=== PATIENT | female | born 1925 | race Caucasian/White ===

== ENCOUNTER 2016-07-03 07:04 | Emergency (ER) | payer MEDICARE ==
[~2016-07-03] VITALS: Ht 160 cm; Wt 43.3 kg
[~2016-07-03 07:04] MED LIST: ALPR.25 PO; AMLO5TAB22 PO; CARD2TAB PO; ESTR0.5T PO; LATA.005%O OU; LISI-363 PO; SOTA80TA PO; TAB-TAB PO
[2016-07-03 07:13] VITALS: BP 152/69; PULSE 75; RESP 16; TEMP 97.6; O2SAT 98
[2016-07-03] MEDS ORDERED: ACETAMINOPHEN 325 MG TAB PO ONE (07:30)
--- NOTE | 2016-07-03 07:33 | PD ---
HPI Chief Complaint: Musculoskeletal Complaint Time Seen by Provider: 07:22 Travel History International Travel<30 days: No Contact w/Intl Traveler<30days: No Traveled to known affect area: No History of Present Illness HPI Patient is an 89-year-old female comes in complaining of right flank pain that started Tuesday. She says she had the pain Tuesday it seemed to go away for a little while until last night when the pain came back. She says the pain is worse with taking a deep breath. She denies any injury. She denies any nausea or vomiting. She denies any urinary symptoms. She denies any fever but says she has been feeling very cold. PFSH Past Medical History Arthritis: Yes Atrial Fibrillation: Yes Cancer: No Cardiovascular Problems: Yes (ATRIAL FIBRILLATION ) Diabetes: No Endocrine: No Genitourinary: No Hepatitis: Yes (HEPATITIS A) Hiatal Hernia: No Hypertension: Yes Immune Disorder: No Musculoskeletal: No Neurologic: No Psychiatric: Yes (SLIGHTLY CLAUSTROPHOBIC) Reproductive: No Respiratory: Yes Thyroid Disease: No Menopausal: Yes Past Surgical History AICD: No Eye Surgery: Yes (BILATERAL CATARACT SURGERY) Gynecologic Surgery: Yes (HYSTERECTOMY) Hysterectomy: Yes Joint Replacement: No Pacemaker: No Thoracic Surgery: Yes (L BREAST LUMPECTOMY FOR BENIGN MASS) Family History Family Hypercholesterolemia: Yes Social History Alcohol Use: Yes (1-2 GLASSES OF WINE PER NIGHT) Tobacco Use: No Substance Use: No Allergies-Medications (Allergen,Severity, Reaction): Coded Allergies: No Known Allergies (Unverified , 07/03/16) Reported Meds & Prescriptions Reported Meds & Active Scripts Active Keflex (Cephalexin) 500 Mg Cap 500 Mg PO Q6H 7 Days Reported Warfarin 5 Mg Tab 5 Mg PO DAILY Lasix (Furosemide) 20 Mg Tab 20 Mg PO DAILY Sotalol (Sotalol HCl) 80 Mg Tab 40 Mg PO BID Lisinopril 20 Mg Tab 20 Mg PO HS Xalatan Opth Drops (Latanoprost) 0.005% Drops 1 Drop EACH EYE HS Estrace (Estradiol) 0.5 Mg Tab 0.5 Mg PO DAILY Amlodipine (Amlodipine Besylate) 5 Mg Tab 5 Mg PO DAILY Xanax (Alprazolam) 0.25 Mg Tab 0.25 Mg PO HS PRN Review of Systems Except as stated in HPI: all other systems reviewed are Neg General / Constitutional: Positive: Chills, No: Fever HENT: No: Headaches Cardiovascular: No: Chest Pain or Discomfort Respiratory: No: Cough Gastrointestinal: No: Nausea, Vomiting Genitourinary: Positive: Flank Pain, No: Dysuria Musculoskeletal: Positive: Pain Skin: No Rash, No Change in Pigmentation Neurologic: No: Weakness, Dizziness Physical Exam Narrative GENERAL: Awake and alert, in no acute distress. SKIN: Focused skin assessment warm/dry. HEAD: Atraumatic. Normocephalic. EYES: Pupils equal and round. No scleral icterus. ENT: Mucous membranes pink and moist. NECK: Trachea midline. No JVD. CARDIOVASCULAR: Regular rate and rhythm. No murmur appreciated. RESPIRATORY: No accessory muscle use. Clear to auscultation. Breath sounds equal bilaterally. Pain with deep breathing. GASTROINTESTINAL: Abdomen soft, non-tender, nondistended. No CVA tenderness. MUSCULOSKELETAL: No obvious deformities. No clubbing. No cyanosis. No edema. Pedal pulses equal and intact. NEUROLOGICAL: Awake and alert. No obvious cranial nerve deficits. Motor grossly within normal limits. Normal speech. PSYCHIATRIC: Appropriate mood and affect; insight and judgment normal. Data Data Last Documented VS Vital Signs Date Time Temp Pulse Resp B/P Pulse Ox O2 Delivery O2 Flow Rate FiO2 07/03/16 09:28 72 17 142/78 96 07/03/16 07:13 97.6 Orders Complete Blood Count With Diff (07/03/16 07:29) Comprehensive Metabolic Panel (07/03/16 07:29) Chest, Pa & Lat (07/03/16 ) Act Partial Throm Time (Ptt) (07/03/16 07:29) Prothrombin Time / Inr (Pt) (07/03/16 07:29) Ct Abd/Pel W/O Iv Contrast (07/03/16 ) Acetaminophen (Tylenol) (07/03/16 07:30) Urinalysis - C+S If Indicated (07/03/16 07:34) Urine Culture (07/03/16 07:48) Labs Laboratory Tests Test 07/03/16 07/03/16 07:48 08:00 Urine Collection Type CLEAN CATCH Urine Color YELLOW Urine Turbidity CLEAR Urine pH 6.5 Urine Specific [place] 1.011 Urine Protein NEG mg/dL Urine Glucose (UA) NEG mg/dL Urine Ketones NEG mg/dL Urine Occult Blood NEG Urine Nitrite NEG Urine Bilirubin NEG Urine Leukocyte Esterase SMALL Urine RBC 0-3 /hpf Urine WBC 20-24 /hpf Urine Squamous Epithelial > 8 /hpf Cells Urine Renal Epithelial Cells 0-5 /hpf Urine Bacteria OCC /hpf Microscopic Urinalysis Comment CULTURE INDICATED Urine Collection Time 07:48 White Blood Count 6.9 TH/MM3 Red Blood Count 3.87 MIL/MM3 Hemoglobin 11.9 GM/DL Hematocrit 35.7 % Mean Corpuscular Volume 92.3 FL Mean Corpuscular Hemoglobin 30.6 PG Mean Corpuscular Hemoglobin 33.2 % Concent Red Cell Distribution Width 12.6 % Platelet Count 354 TH/MM3 Mean Platelet Volume 6.7 FL Neutrophils (%) (Auto) 74.9 % Lymphocytes (%) (Auto) 12.0 % Monocytes (%) (Auto) 11.7 % Eosinophils (%) (Auto) 1.0 % Basophils (%) (Auto) 0.4 % Neutrophils # (Auto) 5.2 TH/MM3 Lymphocytes # (Auto) 0.8 TH/MM3 Monocytes # (Auto) 0.8 TH/MM3 Eosinophils # (Auto) 0.1 TH/MM3 Basophils # (Auto) 0.0 TH/MM3 CBC Comment DIFF FINAL Differential Comment Prothrombin Time 11.2 SEC Prothromb Time International 1.0 RATIO Ratio Activated Partial 30.8 SEC Thromboplast Time Sodium Level 134 MEQ/L Potassium Level 4.1 MEQ/L Chloride Level 97 MEQ/L Carbon Dioxide Level 29.0 MEQ/L Anion Gap 8 MEQ/L Blood Urea Nitrogen 14 MG/DL Creatinine 0.83 MG/DL Estimat Glomerular Filtration 65 ML/MIN Rate Random Glucose 101 MG/DL Calcium Level 8.9 MG/DL Total Bilirubin 0.4 MG/DL Aspartate Amino Transf 18 U/L (AST/SGOT) Alanine Aminotransferase 14 U/L (ALT/SGPT) Alkaline Phosphatase 103 U/L Total Protein 7.7 GM/DL Albumin 3.2 GM/DL [facility] Medical Decision Making Medical Screen Exam Complete: Yes Emergency Medical Condition: Yes Medical Record Reviewed: Yes Differential Diagnosis UTI versus kidney stone versus pneumonia Narrative Course The patient is an 89-year-old female comes in complaining of right flank pain. Pain is not reproducible on exam. IV established, labs sent. Labs show no acute abnormalities, creatinine is 0.83. Urinalysis is positive for bacteria and white blood cells. Chest x-ray performed is unchanged from her previous. CT abdomen and pelvis shows some small gallstones, no other acute abnormalities. Patient is resting comfortably. We will discharge with Keflex for UTI. Patient advised to follow-up with her doctors as scheduled on Tuesday. Advised to return to the ED as needed for any worsening symptoms. Diagnosis Primary Impression: UTI (urinary tract infection) Qualified Code: N30.00 - Acute cystitis without hematuria Patient Instructions: General Instructions, Urinary Tract Infection in Women ( ED) Additional Instructions: Take all of your antibiotic. Take Tylenol as needed for pain. Follow up with your doctors. Return to the ED as needed for any worsening symptoms. Scripts Cephalexin (Keflex)500 Mg [id number] Mg PO Q6H 7 Days Ref 0 Prov:Gifty Rowley MD 07/03/16 Disposition: 01 DISCHARGE HOME Condition: Stable Gifty Rowley MD July 03, 2016 07:33
[2016-07-03] MEDS ORDERED: FURO1TAB62 PO (07:42)
[2016-07-03] MEDS ORDERED: AMLO5TAB2 PO (07:42)
[2016-07-03] MEDS ORDERED: ALPR.25 PO (07:42)
[2016-07-03] MEDS ORDERED: WARF-23 PO (07:42)
[2016-07-03] MEDS ORDERED: LATA.005%O EACH EYE (07:42)
[2016-07-03] MEDS ORDERED: SOTA80TA PO (07:42)
[2016-07-03] MEDS ORDERED: LISI-515 PO (07:42)
[2016-07-03] MEDS ORDERED: ESTR0.5T3 PO (07:42)
--- NOTE | 2016-07-03 08:00 | RADHPO ---
EXAM DATE/TIME: 07/03/2016 07:35 [facility] COMPARISON: CHEST SINGLE AP, August 25, 2012, 20:00. CHEST PA & LAT, February 03, 2014, 4: 37. INDICATIONS : Short of breath, right posterior chest pains MEDICAL HISTORY : Atrial fibrillation SURGICAL HISTORY : None. ENCOUNTER: Initial ACUITY: 2 days PAIN SCORE: 10/10 LOCATION: Right posterior chest FINDINGS: PA and lateral views of the chest were obtained and demonstrate mild patchy opacity projected over reymundo th lower lobes with more linear consolidation project over the heart border likely located in the rig ht middle lobe. The heart size is within normal limits. There is no effusion. Bony thorax is intact w ith mild scoliosis. Atherosclerotic changes are present in the aorta with calcification. CONCLUSION: No significant interval change. Area of apparent consolidation in what appears to be right middle lobe best seen on the lateral exam. Difference diagnosis includes pneumonia and scarring . Darrell Lay MD on July 03, 2016 at 7:56 Board Certified Radiologist. This report was verified electronically.
[2016-07-03 08:02] LABS: BLOOD, URINE NEG (NEG); GLUCOSE,URINE NEG (NEG); KETONE, URINE NEG (NEG); NITRITE,URINE NEG (NEG); PH, URINE 6.5 (5.0-8.5)
[2016-07-03 08:03] LABS: METHOD OF COLLECTION CLEAN CATCH; URINE COLOR YELLOW (YELLW/STRAW)
[2016-07-03 08:04] LABS: BACTERIA, URINE OCC /hpf; COMMENT (UR) CULTURE INDICATED; CULTURE IF INDICATED CULTURE INDICATED; RBC, URINE 0-3 /hpf (0-3); RENAL EPITHELIAL CELLS 0-5 /hpf; SQUAMOUS EPITHELIAL CELL URINE > 8 /hpf (0-5)
--- NOTE | 2016-07-03 08:04 | RADHPO ---
EXAM DATE/TIME: 07/03/2016 07:44 [facility] COMPARISON: No previous studies available for comparison. INDICATIONS : Intermittent right flank pain for 3 days. ORAL CONTRAST: No oral contrast ingested. RADIATION DOSE: 6.83 CTDIvol (mGy) MEDICAL HISTORY : None SURGICAL HISTORY : Hysterectomy. ENCOUNTER: Initial ACUITY: 3 days PAIN SCALE: 3/10 LOCATION: Right flank TECHNIQUE: Volumetric scanning of the abdomen and pelvis was performed. Using automated exposure control and ad justment of the mA and/or kV according to patient size, radiation dose was kept as low as reasonably achievable to obtain optimal diagnostic quality images. FINDINGS: LOWER LUNGS: The visualized lower lungs are clear. LIVER: Homogeneous density without lesion. There is no dilation of the biliary tree. There are small appare nt gallstones layering dependently in the gallbladder. SPLEEN: Normal size without lesion. PANCREAS: Within normal limits. KIDNEYS: Normal in size and shape. There is no mass, stone, or hydronephrosis. ADRENAL GLANDS: Within normal limits. VASCULAR: There is no aortic aneurysm. BOWEL/MESENTERY: The stomach, small bowel, and colon demonstrate no acute abnormality. There is no free intraperitone al air or fluid. ABDOMINAL WALL: Within normal limits. RETROPERITONEUM: There is no lymphadenopathy. BLADDER: No wall thickening or mass. REPRODUCTIVE: Within normal limits. INGUINAL: There is no lymphadenopathy or hernia. MUSCULOSKELETAL: Within normal limits for patient age. CONCLUSION: 1. No renal calculi or obstruction. 2. Apparent small gallstones. Darrell Lay MD on July 03, 2016 at 7:59 Board Certified Radiologist. This report was verified electronically.
[2016-07-03 08:10] LABS: AUTOMATED NEUTROPHIL # 5.2 TH/MM3 (1.8-7.7); BASOPHIL % 0.4 % (0.0-2.0); EOSINOPHIL # 0.1 TH/MM3 (0-0.4); HEMATOCRIT 35.7 % (35.0-46.0); HEMO FLAGS DIFF FINAL; LYMPHOCYTE # 0.8 TH/MM3 (1.0-4.8); MEAN CELL VOLUME 92.3 FL (80.0-100.0); MEAN CORPUSCULAR HEMOGLOBIN 30.6 PG (27.0-34.0); MEAN CORPUSCULAR HGB CONC 33.2 % (32.0-36.0); MONO % 11.7 % (0.0-8.0); NEUT % 74.9 % (16.0-70.0); PLATELET COUNT 354 TH/MM3 (150-450); RED BLOOD COUNT 3.87 MIL/MM3 (4.00-5.30); RED CELL DISTRIBUTION WIDTH 12.6 % (11.6-17.2); WHITE BLOOD COUNT 6.9 TH/MM3 (4.0-11.0)
[2016-07-03 08:19] LABS: CHLORIDE 97 MEQ/L (98-107); POTASSIUM 4.1 MEQ/L (3.5-5.1); SODIUM (NA) 134 MEQ/L (136-145)
[2016-07-03 08:23] LABS: ANION GAP 8 MEQ/L (5-15); BLOOD UREA NITROGEN 14 MG/DL (7-18)
[2016-07-03 08:25] LABS: APTT (PATIENT) 30.8 SEC (24.3-30.1); PROTHROMBIN TIME - PATIENT 11.2 SEC (9.8-11.6)
[2016-07-03 08:26] LABS: ALT (GPT) 14 U/L (10-53); AST (GOT) 18 U/L (15-37); GLOMERULAR FILTRATION RATE 65 ML/MIN (>89)
[2016-07-03 08:27] LABS: TOTAL BILIRUBIN ADULT 0.4 MG/DL (0.2-1.0)
[2016-07-03 08:28] LABS: ALKALINE PHOSPHATASE 103 U/L (45-117)
[2016-07-03] MEDS ORDERED: CEPH-460 PO (09:04)
[2016-07-03 09:28] VITALS: BP 142/78
== END 2016-07-03 09:45 | disposition home or self-care (01) ==
LOC: PHED 07:04
DX: N39.0 Urinary tract infection, site not specified (principal); I48.91 Unspecified atrial fibrillation; I10 Essential (primary) hypertension; B96.89 Other specified bacterial agents as the cause of diseases classified elsewhere
CPT/HCPCS: 71020; 74176; 80053; 81001; 85025; 85610; 85730; 87086

== ENCOUNTER 2016-08-03 14:25 | Emergency (ER) | payer MEDICARE ==
[~2016-08-03] VITALS: Ht 157.5 cm; Wt 41.9 kg
[2016-08-03] VITALS (8 sets, daily range): BP systolic 93–229; BP diastolic 45–96; PULSE 55–87; RESP 16–18; TEMP 97.8; O2SAT 97–100
[~2016-08-03 14:25] MED LIST changes: +AMLO5TAB2 PO; -AMLO5TAB22 PO; -CARD2TAB PO; +CEPH-460 PO; -ESTR0.5T PO; +ESTR0.5T3 PO; +FURO1TAB62 PO; +LATA.005%O EACH EYE; -LATA.005%O OU; -LISI-363 PO; +LISI-515 PO; -TAB-TAB PO; +WARF-23 PO
--- NOTE | 2016-08-03 14:53 | PD ---
HPI Chief Complaint: Head Injury Time Seen by Provider: 14:38 Travel History International Travel<30 days: No Contact w/Intl Traveler<30days: No Traveled to known affect area: No History of Present Illness HPI This patient complains of feeling lightheaded and nauseous when she lies flat. 20 hours ago she stumbled and fell outside in her driveway and fell backwards. She sat down onto her buttocks and then continued to fall backwards and hit the back of her head on the ground. No LOC. She does not have head or neck pain. However when lying flat she becomes lightheaded and nauseous. No active vomiting. She does take Coumadin for history of paroxysmal A. fib. No alleviating factors. Symptoms severity is moderate. PFSH Past Medical History Hx Anticoagulant Therapy: Yes (Coumadin) Arthritis: Yes Atrial Fibrillation: Yes Cancer: No Cardiovascular Problems: Yes (ATRIAL FIBRILLATION ) Diabetes: No Endocrine: No Genitourinary: No Hepatitis: Yes (HEPATITIS A) Hiatal Hernia: No Hypertension: Yes Immune Disorder: No Musculoskeletal: No Neurologic: No Psychiatric: Yes (SLIGHTLY CLAUSTROPHOBIC) Reproductive: No Respiratory: Yes Thyroid Disease: No ?: Not Menopausal: Yes Past Surgical History AICD: No Eye Surgery: Yes (BILATERAL CATARACT SURGERY) Gynecologic Surgery: Yes (HYSTERECTOMY) Hysterectomy: Yes Joint Replacement: No Pacemaker: No Thoracic Surgery: Yes (L BREAST LUMPECTOMY FOR BENIGN MASS) Other Surgery: Yes Family History Family Hypercholesterolemia: Yes Social History Alcohol Use: Yes (1-2 GLASSES OF WINE PER NIGHT) Tobacco Use: No Substance Use: No Allergies-Medications (Allergen,Severity, Reaction): Coded Allergies: No Known Allergies (Unverified , 08/03/16) Reported Meds & Prescriptions Reported Meds & Active Scripts Active Reported Warfarin 5 Mg Tab 5 Mg PO DAILY Lasix (Furosemide) 20 Mg Tab 20 Mg PO DAILY Sotalol (Sotalol HCl) 80 Mg Tab 40 Mg PO BID Lisinopril 20 Mg Tab 20 Mg PO HS Xalatan Opth Drops (Latanoprost) 0.005% Drops 1 Drop EACH EYE HS Estrace (Estradiol) 0.5 Mg Tab 0.5 Mg PO DAILY Amlodipine (Amlodipine Besylate) 5 Mg Tab 5 Mg PO DAILY Xanax (Alprazolam) 0.25 Mg Tab 0.25 Mg PO HS PRN Review of Systems General / Constitutional: No: Fever Eyes: No: Visual changes HENT: Positive: Lightheadedness, No: Headaches Cardiovascular: No: Chest Pain or Discomfort Respiratory: No: Shortness of Breath Gastrointestinal: Positive: Nausea, No: Abdominal Pain Genitourinary: No: Dysuria Musculoskeletal: No: Pain Skin: No Rash Neurologic: Positive: Dizziness, No: Weakness Psychiatric: No: Depression Endocrine: No: Polydipsia Hematologic/Lymphatic: No: Easy Bruising Physical Exam Narrative GENERAL: Well-nourished, well-developed patient in no apparent distress. SKIN: Focused skin assessment reveals no rash and nodules. Skin is Warm and dry. HEAD: Atraumatic. Normocephalic. EYES: Pupils equal and round. No scleral icterus. No injection or drainage. ENT: No nasal bleeding or discharge. Mucous membranes pink and moist. NECK: Trachea midline. No JVD. No midline tenderness CARDIOVASCULAR: Regular rate and rhythm. No murmur appreciated. RESPIRATORY: No accessory muscle use. Clear to auscultation. Breath sounds equal bilaterally. GASTROINTESTINAL: Abdomen soft, non-tender, nondistended. Hepatic and splenic margins not palpable. MUSCULOSKELETAL: No obvious deformities. No clubbing. No cyanosis. No edema. NEUROLOGICAL: Awake and alert. No obvious cranial nerve deficits. Motor grossly within normal limits. Normal speech. PSYCHIATRIC: Appropriate mood and affect; insight and judgment normal. Data Data Last Documented VS Vital Signs Date Time Temp Pulse Resp B/P Pulse Ox O2 Delivery O2 Flow Rate FiO2 08/03/16 17:03 57 18 100/45 98 Room Air 08/03/16 14:[address] Brain W/O Iv Contrast(Rout) (08/03/16 ) Clonidine (Catapres) (08/03/16 15:00) Sodium Chlor 0.9% 1000 Ml Inj (Ns 1000 M (08/03/16 16:45) Iv Access Insert/Monitor (08/03/16 16:33) [facility] Medical Decision Making Medical Screen Exam Complete: Yes Emergency Medical Condition: Yes Medical Record Reviewed: Yes Differential Diagnosis Intracranial hemorrhage, concussion, postconcussive syndrome Narrative Course I have reviewed the patient's electronic medical record. No objective findings on exam. She is neurologically intact Does have significantly accelerated hypertension On recheck is 229/96 I gave her dose of clonidine and will reassess Patient's brain CT is negative for intracranial injury Unfortunately the clonidine iatrogenically lowered her blood pressure too much down to 99 systolic I placed an IV and started some IV normal saline and will reassess her pressure Pressure up to 108 systolic and she is asymptomatic I believe the pressure woke steadily trickle up to her baseline She should check and recorded daily and follow up with her physician Diagnosis Primary Impression: Head injury due to trauma Qualified Code: S09.90XA - Head injury due to trauma, initial encounter Additional Impression: Accelerated hypertension Additional Instructions: The patient was advised to follow up with their physician and return if they worsen. Check and record blood pressure daily Med/Other Pt SpecificInfo: Other Disposition: 01 DISCHARGE HOME Condition: Stable Jos Vallejo MD Aug 03, 2016 14:53
[2016-08-03] MEDS ORDERED: cloNIDine HCL 0.2 MG TAB PO ONE (15:00)
--- NOTE | 2016-08-03 15:31 | RADHPO ---
EXAM DATE/TIME: 08/03/2016 14:55 [facility] COMPARISON: CT BRAIN W/O CONTRAST, August 25, 2012, 20:04. INDICATIONS : Fell and hit back of head last night. RADIATION DOSE: 59.69 CTDIvol (mGy) MEDICAL HISTORY : Hypertension. Anticoagulant therapy. SURGICAL HISTORY : Hysterectomy. Bilateral cataract surgery. ENCOUNTER: Initial ACUITY: 2 days PAIN SCALE: 0/10 LOCATION: cranial TECHNIQUE: Multiple contiguous axial images were obtained of the head. Using automated exposure control and adj ustment of the mA and/or kV according to patient size, radiation dose was kept as low as reasonably a chievable to obtain optimal diagnostic quality images. FINDINGS: CEREBRUM: Stable moderate atrophy with prominence of the CSF spaces about the frontal lobes and mild enlargemen t of the ventricles. The appearance is unchanged from prior CT in July 2012.. No evidence of midlin e shift, mass lesion, hemorrhage or acute infarction. No extra-axial fluid collections are seen. POSTERIOR FOSSA: The cerebellum and brainstem are intact. The 4th ventricle is midline. The cerebellopontine angle i s unremarkable. EXTRACRANIAL: The visualized portion of the orbits is intact. SKULL: The calvaria is intact. No evidence of skull fracture. CONCLUSION: 1. Stable moderate atrophy. 2. No acute findings in the brain. Rip Lemus MD on August 03, 2016 at 15:15 Board Certified Radiologist. This report was verified electronically.
[2016-08-03] MEDS ORDERED: SODIUM CHLOR 0.9% 1000 ML INJ 1,000 ML IV ONE (16:45)
[2016-08-03 18:09] LABS: AUTOMATED NEUTROPHIL # 2.4 TH/MM3 (1.8-7.7); BASOPHIL % 0.5 % (0.0-2.0); EOSINOPHIL % 0.4 % (0.0-4.0); HEMATOCRIT 33.7 % (35.0-46.0); HEMO FLAGS DIFF FINAL; LYMPH % 21.8 % (9.0-44.0); LYMPHOCYTE # 0.8 TH/MM3 (1.0-4.8); MEAN CELL VOLUME 89.8 FL (80.0-100.0); MEAN CORPUSCULAR HEMOGLOBIN 30.6 PG (27.0-34.0); NEUT % 67.3 % (16.0-70.0); PLATELET COUNT 244 TH/MM3 (150-450); RED BLOOD COUNT 3.74 MIL/MM3 (4.00-5.30); RED CELL DISTRIBUTION WIDTH 12.2 % (11.6-17.2); WHITE BLOOD COUNT 3.6 TH/MM3 (4.0-11.0)
[2016-08-03 18:14] LABS: POTASSIUM 3.6 MEQ/L (3.5-5.1)
[2016-08-03 18:17] LABS: BICARBONATE 28.2 MEQ/L (21.0-32.0)
== END 2016-08-03 18:38 | disposition home or self-care (01) ==
LOC: PHED 14:25
DX: S09.90XA Unspecified injury of head, initial encounter (principal); I10 Essential (primary) hypertension; I48.0 Paroxysmal atrial fibrillation; B15.9 Hepatitis A without hepatic coma; Z79.01 Long term (current) use of anticoagulants; W19.XXXA Unspecified fall, initial encounter; Y93.9 Activity, unspecified; Y92.008 Other place in unspecified non-institutional (private) residence as the place of occurrence of the external cause; Y99.8 Other external cause status
CPT/HCPCS: 70450; 80048; 85025; 96360; 99285; J7030

== ENCOUNTER 2016-09-20 21:44 | Inpatient (IN) | payer MEDICARE ==
[~2016-09-20] VITALS: Ht 157.5 cm; Wt 46.0 kg
[2016-09-20] VITALS (9 sets, daily range): BP systolic 11–144; BP diastolic 52–81; PULSE 99–178; RESP 18–22; TEMP 97.9–98.2; O2SAT 87–99
[~2016-09-20 21:44] MED LIST changes: -CEPH-460 PO
[2016-09-20] MEDS ORDERED: SODIUM CHLORIDE 0.9% FLUSH 10 ML FLUSH IVF PRN ×2 (22:15→22:45)
[2016-09-20] MEDS ORDERED: SODIUM CHLORID 0.9% 500 ML INJ 500 ML IV ONE (22:15)
[2016-09-20] MEDS ORDERED: cefTRIAXone INJ 1,000 MG in SODIUM CHLORIDE 0.9% INJ 100 ML IV ONE (22:15)
[2016-09-20] MEDS ORDERED: DILTIAZEM HCL 25 MG/5 ML VIAL IV ONE ×2 (22:15→22:45)
--- NOTE | 2016-09-20 22:22 | PD ---
HPI Chief Complaint: shortness of breath Time Seen by Provider: 22:12 Travel History International Travel<30 days: No Contact w/Intl Traveler<30days: No Traveled to known affect area: No History of Present Illness HPI 89-year-old female presents to the emergency department by private transportation for complaint of one week of shortness of breath with hoarseness and productive cough of yellow sputum for one week. Patient is not aware of having fever or chills. Patient denies chest pain. No abdominal pain. Patient has noted intermittent fluttering in her chest. Patient does have history of atrial fibrillation intermittently and does take Coumadin therapy. Patient did not take her dose of Coumadin this evening but has been compliant with her medications otherwise. Patient does not complain of any pleuritic pain. No lower extremity pain or swelling and no orthopnea or PND. PFSH Past Medical History Narrative Medical Arthritis asthma atrial fibrillation anxiety dyslipidemia hypertension hysterectomy eyes surgery tonsillectomy; alcohol use; nursing notes reviewed Hx Anticoagulant Therapy: Yes (Coumadin) Arthritis: Yes Atrial Fibrillation: Yes Cancer: No Cardiovascular Problems: Yes (ATRIAL FIBRILLATION ) Diabetes: No Diminished Hearing: No Endocrine: No Genitourinary: No Hepatitis: Yes (HEPATITIS A) Hiatal Hernia: No Hypertension: Yes Immune Disorder: No Musculoskeletal: No Neurologic: No Psychiatric: Yes (SLIGHTLY CLAUSTROPHOBIC) Reproductive: No Respiratory: Yes Immunizations Current: Yes Thyroid Disease: No Menopausal: Yes Past Surgical History AICD: No Eye Surgery: Yes (BILATERAL CATARACT SURGERY) Gynecologic Surgery: Yes (HYSTERECTOMY) Hysterectomy: Yes Joint Replacement: No Pacemaker: No Thoracic Surgery: Yes (L BREAST LUMPECTOMY FOR BENIGN MASS) Other Surgery: Yes Family History Family Hypercholesterolemia: Yes Social History Alcohol Use: Yes (1-2 GLASSES OF WINE PER NIGHT) Tobacco Use: No Substance Use: No Allergies-Medications (Allergen,Severity, Reaction): Coded Allergies: No Known Allergies (Unverified , 08/03/16) Reported Meds & Prescriptions Reported Meds & Active Scripts Active Reported Warfarin 5 Mg Tab 5 Mg PO DAILY Sotalol (Sotalol HCl) 80 Mg Tab 40 Mg PO BID Xalatan Opth Drops (Latanoprost) 0.005% Drops 1 Drop EACH EYE HS Estrace (Estradiol) 0.5 Mg Tab 0.5 Mg PO DAILY Amlodipine (Amlodipine Besylate) 5 Mg Tab 5 Mg PO DAILY Xanax (Alprazolam) 0.25 Mg Tab 0.25 Mg PO HS PRN Review of Systems Except as stated in HPI: all other systems reviewed are Neg General / Constitutional: Positive: Chills, No: Fever Cardiovascular: No: Chest Pain or Discomfort Respiratory: Positive: Cough, Shortness of Breath, Other (laryngitis), No: Stridor Gastrointestinal: No: Nausea, Vomiting, Abdominal Pain Genitourinary: No: Dysuria Musculoskeletal: Positive: Myalgias, Arthralgias, No: Cramping, Edema, Pain Skin: No Rash Neurologic: Positive: Weakness, No: Dizziness, Syncope, Focal Abnormalities, Coordination Problem Psychiatric: No: Anxiety Hematologic/Lymphatic: No: Lymph Node Enlargement Physical Exam Narrative GENERAL: Elderly thin female in mild respiratory distress with tachycardia to palpation and auscultation. SKIN: Warm and dry. HEAD: Normocephalic. EYES: No scleral icterus. No injection or drainage. NECK: Supple, trachea midline. No JVD or lymphadenopathy. CARDIOVASCULAR: Increased Regular rate and rhythm without murmurs, gallops, or rubs. RESPIRATORY: Breath sounds equal bilaterally. No accessory muscle use. GASTROINTESTINAL: Abdomen soft, non-tender, nondistended. MUSCULOSKELETAL: No cyanosis, or edema. BACK: Nontender without obvious deformity. No CVA tenderness. Data Data Last Documented VS Vital Signs Date Time Temp Pulse Resp B/P Pulse Ox O2 Delivery O2 Flow Rate FiO2 09/20/16 23:20 99 18 111/60 98 Nasal Cannula 2 09/20/16 22:02 98.2 Orders Complete Blood Count With Diff (09/20/16 22:12) Comprehensive Metabolic Panel (09/20/16 22:12) B-Type Natriuretic Peptide (09/20/16 22:12) Act Partial Throm Time (Ptt) (09/20/16 22:12) Prothrombin Time / Inr (Pt) (09/20/16 22:12) Magnesium (Mg) (09/20/16 22:12) Ckmb (Isoenzyme) Profile (09/20/16 22:12) Troponin I (09/20/16 22:12) Urinalysis - C+S If Indicated (09/20/16 22:12) Influenzae A/B Antigen (09/20/16 22:12) Blood Culture (09/20/16 22:12) Iv Access Insert/Monitor (09/20/16 22:12) Electrocardiogram (09/20/16 22:12) Ecg Monitoring (09/20/16 22:12) Oximetry (09/20/16 22:12) Oxygen Administration (09/20/16 22:12) Chest, Single Ap (09/20/16 22:12) Sodium Chloride 0.9% Flush (Ns Flush) (09/20/16 22:15) Sodium Chlorid 0.9% 500 Ml Inj (Ns 500 M (09/20/16 22:15) Ceftriaxone Inj (Rocephin Inj) (09/20/16 22:15) Lactic Acid (09/20/16 22:12) Diltiazem Inj (Cardizem Inj) (09/20/16 22:15) Diltiazem Inj (Cardizem Inj) (09/20/16 22:45) Diltiazem Inj (Cardizem Inj) (09/20/16 22:45) Sodium Chloride 0.9% Flush (Ns Flush) (09/20/16 22:45) CKMB (09/20/16 22:25) CKMB% (09/20/16 22:25) Electrocardiogram (09/20/16 ) Aspirin Chew (Aspirin Chew) (09/21/16 00:00) Warfarin (Coumadin) (09/21/16 00:00) Admit Order (Ed Use Only) (09/21/16 ) Vital Signs (Adult) Q4H (09/21/16 00:10) Diet Heart Healthy (09/21/16 Breakfast) Activity Oob With Assistance (09/21/16 00:10) ^ Saline Lock (09/21/16 00:10) Resp Oxygen Castro C Titrat 1-4 L (09/21/16 ) Notify Dr: Other (09/21/16 00:10) Sodium Chloride 0.9% Flush (Ns Flush) (09/21/16 09:00) Sodium Chloride 0.9% Flush (Ns Flush) (09/21/16 00:15) Consult Cardiology (09/21/16 00:10) ^ For Further Orders (09/21/16 00:10) Labs Laboratory Tests Test 09/20/16 22:25 Prothrombin Time 13.9 SEC Prothromb Time International 1.2 RATIO Ratio Activated Partial 36.0 SEC Thromboplast Time Sodium Level 125 MEQ/L Potassium Level 3.4 MEQ/L Chloride Level 87 MEQ/L Carbon Dioxide Level 26.8 MEQ/L Anion Gap 11 MEQ/L Blood Urea Nitrogen 15 MG/DL Creatinine 0.92 MG/DL Estimat Glomerular Filtration 57 ML/MIN Rate Random Glucose 123 MG/DL Lactic Acid Level 1.5 mmol/L Calcium Level 8.4 MG/DL Magnesium Level 1.8 MG/DL Total Bilirubin 0.7 MG/DL Aspartate Amino Transf 35 U/L (AST/SGOT) Alanine Aminotransferase 24 U/L (ALT/SGPT) Alkaline Phosphatase 123 U/L Total Creatine Kinase 135 U/L Creatine Kinase MB 1.1 NG/ML Troponin I 0.29 NG/ML B-Type Natriuretic Peptide 258 PG/ML Total Protein 7.7 GM/DL Albumin 2.9 GM/DL White Blood Count 11.0 TH/MM3 Red Blood Count 4.16 MIL/MM3 Hemoglobin 12.6 GM/DL Hematocrit 37.7 % Mean Corpuscular Volume 90.6 FL Mean Corpuscular Hemoglobin 30.3 PG Mean Corpuscular Hemoglobin 33.4 % Concent Red Cell Distribution Width 13.0 % Platelet Count 394 TH/MM3 Mean Platelet Volume 7.4 FL Neutrophils (%) (Auto) 75.7 % Lymphocytes (%) (Auto) 10.1 % Monocytes (%) (Auto) 12.8 % Eosinophils (%) (Auto) 0.3 % Basophils (%) (Auto) 1.1 % Neutrophils # (Auto) 8.4 TH/MM3 Lymphocytes # (Auto) 1.1 TH/MM3 Monocytes # (Auto) 1.4 TH/MM3 Eosinophils # (Auto) 0.0 TH/MM3 Basophils # (Auto) 0.1 TH/MM3 CBC Comment AUTO DIFF Differential Total Cells 100 Counted Neutrophils % (Manual) 75 % Band Neutrophils % 6 % Lymphocytes % 6 % Monocytes % 12 % Basophils % 1 % Neutrophils # (Manual) 8.9 TH/MM3 Differential Comment FINAL DIFF MANUAL Platelet Estimate NORMAL Platelet Morphology Comment NORMAL Red Cell Morphology Comment NORMAL MDM Medical Decision Making Medical Screen Exam Complete: Yes Emergency Medical Condition: Yes Medical Record Reviewed: Yes Interpretation(s) EKG: Atrial flutter with rapid ventricular response rate of 155 EKG post Cardizem atrial flutter with rapid ventricular rate 3141 with rate of [address] elevation or injury pattern change noted Troponin I elevated at 0.29 CK 135 not elevated BNP elevated 258 Last Impressions Chest X-Ray 09/20/16 2212 Signed Impressions: Service Date/Time: Tuesday, September 20, 2016 22:17 - CONCLUSION: Minimal bibasilar patchy densities. Home Velasco MD CBC & BMP Diagram 09/20/16 22:25 influenza ag: negative Differential Diagnosis Dyspnea, pneumonia, CHF, arrhythmia, ACS, PE, pneumothorax, sepsis, anemia Narrative Course Patient placed on cardiac monitors found to be in atrial flutter rate of 150 O2 saturation on 2 L/m nasal cannula 99% blood pressure stable; IV access obtained specimens collected and sent for 2 or 3 EKG ordered along with Cardizem weight- based 0.25 mg/kg 10 mg IV to be administered. Patient also with productive cough shortness of breath and hoarseness with recent respiratory illness blood cultures and lactic acid obtained and patient presumptively administered Rocephin 1 g Patient administered Cardizem may dosing at 0.35 mg/kg and Cardizem infusion ordered Patient resting comfortably receiving IV fluid bolus and heart rate slowly responding to Cardizem Patient identified to have elevated troponin I of 0.29 patient's case discussed with on-call cardiology recommend [facility] admission Patient discussed with the health care provider Dr. Vaz admit to Dr. Moon Patient informed of lab results and recommendation for admission to [facility] to the cardiac intermediate care unit Physician Communication Physician Communication call placed to Cardiology discussed with Dr Kamara covering for Dr John -- admit to [facility], add digoxin as needed for rate control; discussed with Dr Worrell--for [facility] admit Diagnosis Primary Impression: Atrial flutter with rapid ventricular response Additional Impressions: Atrial fibrillation and flutter Elevated troponin I level Laryngitis Admitting Information Admitting Physician Requests: Admit Asha Tellez MD Sep 20, 2016 22:22
--- NOTE | 2016-09-20 22:30 | RADRPT ---
EXAM DATE/TIME: 09/20/2016 22:17 [facility] COMPARISON: CHEST PA & LAT, July 03, 2016, 7:35. INDICATIONS : Shortness of breath. MEDICAL HISTORY : None. SURGICAL HISTORY : None. ENCOUNTER: Initial ACUITY: 1 day PAIN SCORE: 0/10 LOCATION: Bilateral chest FINDINGS: A single view of the chest demonstrates subtle bibasilar patchy densities. Heart normal in size. The cardiomediastinal contours are unremarkable. Osseous structures are intact. CONCLUSION: Minimal bibasilar patchy densities. Home Velasco MD on September 20, 2016 at 22:28 Board Certified Radiologist. This report was verified electronically.
[2016-09-20] MEDS ORDERED: DILTIAZEM INJ 125 MG in SODIUM CHLORIDE 0.9% INJ 100 ML IV SCH (22:45)
[2016-09-20 22:52] LABS: AUTOMATED NEUTROPHIL # 8.4 TH/MM3 (1.8-7.7); BASOPHIL # 0.1 TH/MM3 (0-0.2); BASOPHIL % 1.1 % (0.0-2.0); CHLORIDE 87 MEQ/L (98-107); EOSINOPHIL % 0.3 % (0.0-4.0); HEMATOCRIT 37.7 % (35.0-46.0); LYMPH % 10.1 % (9.0-44.0); LYMPHOCYTE # 1.1 TH/MM3 (1.0-4.8); MEAN CELL VOLUME 90.6 FL (80.0-100.0); MEAN CORPUSCULAR HEMOGLOBIN 30.3 PG (27.0-34.0); MEAN CORPUSCULAR HGB CONC 33.4 % (32.0-36.0); MONO % 12.8 % (0.0-8.0); NEUT % 75.7 % (16.0-70.0); PLATELET COUNT 394 TH/MM3 (150-450); POTASSIUM 3.4 MEQ/L (3.5-5.1); RED BLOOD COUNT 4.16 MIL/MM3 (4.00-5.30); SODIUM (NA) 125 MEQ/L (136-145)
[2016-09-20 22:56] LABS: ANION GAP 11 MEQ/L (5-15); BICARBONATE 26.8 MEQ/L (21.0-32.0); HEMO FLAGS AUTO DIFF; INTERNATIONAL NORMALIZED RATIO 1.2 RATIO; MAGNESIUM 1.8 MG/DL (1.5-2.5); PROTHROMBIN TIME - PATIENT 13.9 SEC (9.8-11.6)
[2016-09-20 22:57] LABS: BLOOD UREA NITROGEN 15 MG/DL (7-18)
[2016-09-20 22:59] LABS: ALT (GPT) 24 U/L (10-53)
[2016-09-20 23:00] LABS: AST (GOT) 35 U/L (15-37); GLOMERULAR FILTRATION RATE 57 ML/MIN (>89)
[2016-09-20 23:01] LABS: TOTAL BILIRUBIN ADULT 0.7 MG/DL (0.2-1.0)
[2016-09-20 23:02] LABS: ALKALINE PHOSPHATASE 123 U/L (45-117); CREATINE KINASE 135 U/L (26-192)
[2016-09-20 23:14] LABS: CKMB 1.1 NG/ML (0.5-3.6)
[2016-09-21] VITALS (19 sets, daily range): BP systolic 91–158; BP diastolic 47–79; PULSE 63–88; RESP 16–21; TEMP 97.5–98.8; O2SAT 2–99
[2016-09-21] MEDS ORDERED: WARFARIN SOD 5 MG TAB PO ONE
[2016-09-21] MEDS ORDERED: ASPIRIN 81 MG CHEW TAB CHEW ONE
[2016-09-21] MEDS ORDERED: SODIUM CHLORIDE 0.9% FLUSH 10 ML FLUSH IVF PRN (00:15)
[2016-09-21 00:30] LABS: BANDS 6 % (0-6); BASOPHILS 1 % (0-2); NEUTROPHIL # MANUAL DIFF 8.9 TH/MM3 (1.8-7.7); PLATELET ESTIMATE SMEAR NORMAL (NORMAL); PLATELET MORPHOLOGY NORMAL (NORMAL); POLYS (SEG NEUTROPHILS) 75 % (16-70); SCAN/DIFF FINAL DIFF MANUAL; WBC DIFF SAMPLE 100
--- NOTE | 2016-09-21 08:04 | PD.CONS ---
HPI Service cv Consult Requested By Reason for Consult a [facility] Primary Care Physician Joshua Quiles DO History of Present Illness Here with paroxysmal atrial fibrillation, HTN, mild to moderate AI for 10 day of coughing. She was found in atrial flutter RVR on arrival. She also complained of exertional dyspnea. She denies chest pain. Her last echo was 2102. (Evaristo Reyes) Review of Systems Consitutional: DENIES: Fatigue, Fever, Chills, Weight gain, Weight loss Eyes: DENIES: Amaurosis Fugax, Change in vision Respiratory: COMPLAINS OF: Cough, Shortness of breath Cardiovascular: COMPLAINS OF: See HPI Gastrointestinal: DENIES: Nausea, Vomiting, Change in bowel habits, Reflux, Bloody stools, Melena Genitourinary: DENIES: Urinary incontinence, Difficulty voiding Integumentary: DENIES: Rash Neurologic: DENIES: Tingling or numbness, Memory problems, Poor Balance, Stroke symptoms Musculoskeletal: DENIES: Joint pain, Muscle pain, Limited range of motion, Back pain Psychiatric: DENIES: Anxiety, Depression, Sleep disturbances Hematologic: DENIES: Bruising tendencies, Bleeding tendencies Endocrine: DENIES: Weight gain, Weight loss, Thyroid disease (Evaristo Ryees ) Past Family Social History Allergies: Coded Allergies: No Known Allergies (Unverified , 08/03/16) Past Medical History see HPI Past Surgical History vaginal hysterectomy oophorectomy colonoscopy Reported Medications Reported Meds & Active Scripts Active Reported Warfarin 5 Mg Tab 5 Mg PO DAILY Sotalol (Sotalol HCl) 80 Mg Tab 40 Mg PO BID Xalatan Opth Drops (Latanoprost) 0.005% Drops 1 Drop EACH EYE HS Estrace (Estradiol) 0.5 Mg Tab 0.5 Mg PO DAILY Amlodipine (Amlodipine Besylate) 5 Mg Tab 5 Mg PO DAILY Xanax (Alprazolam) 0.25 Mg Tab 0.25 Mg PO HS PRN Active Ordered Medications Current Medications Medications (Trade) Dose Ordered Sig/Jose Antonio Route Start Time Stop Time Status Last Admin (Cardizem Inj/NS Inj) 125 ml @ 0 mls/hr TITRATE IV 09/20/16 22:45 09/20/16 23:48 (NS Flush) 2 ml BID IV FLUSH 09/21/16 09:00 (NS Flush) 2 ml UNSCH PRN IVF 09/21/16 00:15 (Xanax) 0.25 mg HS PRN PO 09/21/16 01:15 (Norvasc) 5 mg DAILY PO 09/21/16 09:00 (Estradiol) 0.5 mg DAILY PO 09/21/16 09:00 (Xalatan 0.005% Opth Soln) 1 drop HS EACH EYE 09/21/16 21:00 (Betapace) 40 mg BID PO 09/21/16 09:00 (Coumadin) 5 mg DAILY@16 PO 09/21/16 16:00 Family History noncontributory Social History denies smoking or substance abuse, occasional EtOH (Evaristo Reyes) Physical Exam Vital Signs Vital Signs Date Time Temp Pulse Resp B/P Pulse Ox O2 Delivery O2 Flow Rate FiO2 09/21/16 07:25 97.5 69 18 91/47 98 Nasal Cannula 1 09/21/16 07:20 69 18 98 Nasal Cannula 1 09/21/16 05:15 83 16 106/58 98 Nasal Cannula 2 09/21/16 03:21 84 16 98/52 98 Nasal Cannula 09/21/16 02:11 83 16 98/53 98 Nasal Cannula 2 09/21/16 00:45 88 16 116/79 99 Nasal Cannula 2 09/21/16 00:15 20 98 2 09/20/16 23:20 99 18 111/60 98 Nasal Cannula 2 09/20/16 23:00 156 20 111/60 98 Nasal Cannula 2 09/20/16 22:45 156 20 118/66 98 Nasal Cannula 2 09/20/16 22:32 156 20 144/69 99 Nasal Cannula 2 09/20/16 22:26 132 20 92/53 99 Nasal Cannula 2 09/20/16 22:15 98 Nasal Cannula 2 09/20/16 22:10 160 20 97/52 96 Nasal Cannula 2 09/20/16 22:06 154 22 141/81 89 09/20/16 22:04 156 22 89 Room Air 09/20/16 22:02 98.2 178 22 102/76 88 09/20/16 22:00 97.9 154 20 141/81 87 Physical Exam GENERAL: Well-nourished, well-developed patient in no apparent distress. NECK: No JVD. No carotid bruit. CARDIOVASCULAR: Regular rate and rhythm. S1/S2 no rub or gallop. IIVI diastolic murmur LSB RESPIRATORY: No accessory muscle use. Clear to auscultation. Breath sounds equal bilaterally. GASTROINTESTINAL: Abdomen soft, non-tender, nondistended. MUSCULOSKELETAL: Extremities without clubbing, cyanosis, or edema. Laboratory Laboratory Tests Test 09/20/16 22:25 Prothrombin Time 13.9 Prothromb Time International 1.2 Ratio Activated Partial 36.0 Thromboplast Time Sodium Level 125 Potassium Level 3.4 Chloride Level 87 Carbon Dioxide Level 26.8 Anion Gap 11 Blood Urea Nitrogen 15 Creatinine 0.92 Estimat Glomerular Filtration 57 Rate Random Glucose 123 Lactic Acid Level 1.5 Calcium Level 8.4 Magnesium Level 1.8 Total Bilirubin 0.7 Aspartate Amino Transf 35 (AST/SGOT) Alanine Aminotransferase 24 (ALT/SGPT) Alkaline Phosphatase 123 Total Creatine Kinase 135 Creatine Kinase MB 1.1 Troponin I 0.29 B-Type Natriuretic Peptide 258 Total Protein 7.7 Albumin 2.9 White Blood Count 11.0 Red Blood Count 4.16 Hemoglobin 12.6 Hematocrit 37.7 Mean Corpuscular Volume 90.6 Mean Corpuscular Hemoglobin 30.3 Mean Corpuscular Hemoglobin 33.4 Concent Red Cell Distribution Width 13.0 Platelet Count 394 Mean Platelet Volume 7.4 Neutrophils (%) (Auto) 75.7 Lymphocytes (%) (Auto) 10.1 Monocytes (%) (Auto) 12.8 Eosinophils (%) (Auto) 0.3 Basophils (%) (Auto) 1.1 Neutrophils # (Auto) 8.4 Lymphocytes # (Auto) 1.1 Monocytes # (Auto) 1.4 Eosinophils # (Auto) 0.0 Basophils # (Auto) 0.1 CBC Comment AUTO DIFF Differential Total Cells 100 Counted Neutrophils % (Manual) 75 Band Neutrophils % 6 Lymphocytes % 6 Monocytes % 12 Basophils % 1 Neutrophils # (Manual) 8.9 Differential Comment FINAL DIFF MANUAL Platelet Estimate NORMAL Platelet Morphology Comment NORMAL Red Cell Morphology Comment NORMAL Date/Time Procedure Status Source Growth 09/20/16 22:50 Influenza Types A,B Antigen (FREDERICK) Received Nasal Washing Pending 09/20/16 22:35 Aerobic Blood Culture Received Blood Peripheral Pending 09/20/16 22:35 Anaerobic Blood Culture Received Blood Peripheral Pending (Evaristo Reyes) Result Diagram: [id number]/222409/[id number]/162224 Assessment and Plan Problem List: (1) Atrial flutter with rapid ventricular response Assessment and Plan She his back in SR. Troponin is in the indeterminant range and likely demand mediated from her RVR. We will stop the diltiazem now. We will get a 2D echo and go from there Her blood pressure is low, we will monitor for hypertension once diltiazem is stopped BNP is not significantly elevated (Evaristo Reyes) Assessment and Plan afib RVR - paroxysmal on anticoagulation. continue sotalol. follow QTc. now in NSR. SBP low. will add digoxin 0.125 mg daily to avoid RVR with further paroxysmal episodes. intermediate troponin likely due to demand mediated event in setting of rapid ventricular rate. NPO. SPECT. SBP low. Na low. Cl low. likely dehydrated. gentle hydration. DC planning if SPECT negative. (Addison Kamara MD) Evaristo Reyes Sep 21, 2016 08:04 Addison Kamara MD Sep 21, 2016 08:39
[2016-09-21] MEDS ORDERED: amLODIPine BESYLATE 5 MG TAB PO SCH (09:00)
[2016-09-21] MEDS ORDERED: SODIUM CHLOR 0.9% 1000 ML INJ 1,000 ML IV SCH (09:00)
[2016-09-21] MEDS ORDERED: PILL SPLITTER OTHER PRN (09:15)
[2016-09-21] MEDS: ESTRADIOL 1 MG TAB PO SCH (09:18)
[2016-09-21] MEDS: SODIUM CHLORIDE 0.9% FLUSH 10 ML FLUSH IV FLUSH SCH ×2 (09:18→20:40)
[2016-09-21] MEDS: DIGOXIN 0.125 MG TAB PO SCH (09:19)
[2016-09-21] MEDS: SOTALOL HCL 80 MG TAB PO SCH ×2 (12:33→20:39)
--- NOTE | 2016-09-21 13:09 | ECHRPT ---
Indication: ATRIAL FIB AND FLUTTER CONCLUSIONS Normal left ventricular size. There is mild concentric left ventricular hypertrophy. Nonobstructive prominent basal hypertrophy is present consistent with sigmoid septum. No regional wall motion abnormalities are present. Left ventricular diastolic function parameters are normal. The left ventricular systolic function is normal with an estimated ejection fraction in the range of 55-60%. The left atrial size is mildly dilated. Mild thickening of the mitral valve. Moderate mitral annular calcification. Mild mitral valve regurgitation. No mitral valve stenosis. Aortic valve sclerosis is present. Mild aortic valve regurgitation. No aortic valve stenosis. Structurally normal tricuspid valve. There is trace tricuspid valve regurgitation. Normal estimated pulmonary pressures. BP: 91 / 47 HR: Rhythm: MEASUREMENTS (Male / Female) Normal Values Technical Quality: 2D ECHO LVOT Diameter 1.8 cm Aortic Root Diameter 2.8 cm DOPPLER AI Peak Velocity 12.6 cm/s AI Peak Gradient 0.1 mmHg AI Pressure Half Time 13.5 ms LVOT Peak Velocity 121.0 cm/s LVOT Peak Gradient 5.9 mmHg LVOT Velocity Time Integral 32.3 cm MV Area PHT 2.1 cm TV Peak Velocity 127.0 cm/s TR Peak Velocity 204.0 cm/s TR Peak Gradient 17.0 mmHg FINDINGS LEFT VENTRICLE Normal left ventricular size. There is mild concentric left ventricular hypertrophy. Nonobstructive prominent basal hypertrophy is present consistent with sigmoid septum. No regional wall motion abnormalities are present. Left ventricular diastolic function parameters are normal. The left ventricular systolic function is normal with an estimated ejection fraction in the range of 55-60%. RIGHT VENTRICLE Normal right ventricular size and systolic function. LEFT ATRIUM The left atrial size is mildly dilated. RIGHT ATRIUM The right atrial size is normal. ATRIAL SEPTUM Normal atrial septal thickness without atrial level shunting by limited color doppler interrogation. AORTA The aortic root and proximal ascending aorta are not well visualized. The aortic root and proximal ascending aorta are normal in size on limited imaging. MITRAL VALVE Mild thickening of the mitral valve. Moderate mitral annular calcification. Mild mitral valve regurgitation. No mitral valve stenosis. AORTIC VALVE Aortic valve sclerosis is present. Mild aortic valve regurgitation. No aortic valve stenosis. TRICUSPID VALVE Structurally normal tricuspid valve. There is trace tricuspid valve regurgitation. Normal estimated pulmonary pressures. PULMONARY VALVE The pulmonary valve is not well visualized. VESSELS The inferior vena cava is normal in size. PERICARDIUM No pericardial effusion. Addison Kamara MD, FACC (Electronically Signed) Final Date:21 September 2016 13:08
[2016-09-21] MEDS ORDERED: REGADENOSON INJ 0.4 MG/5 ML SYR ONE (13:56)
--- NOTE | 2016-09-21 14:24 | EKG ---
Date Performed: 09/20/2016 Time Performed: 22:18:52 PTAGE: 89 years EKG: ATRIAL FLUTTER WITH RAPID V RESPONSE ABNORMAL RHYTHM ECG PREVIOUS TRACING : 02/03/2014 04.46 DOCTOR: Camacho Gillette Interpretating Date/Time 09/21/2016 14:23:34
--- NOTE | 2016-09-21 14:24 | EKG ---
Date Performed: 09/20/2016 Time Performed: 23:56:35 PTAGE: 89 years EKG: ATRIAL FLUTTER WITH 2:1 CONDUCTION ATRIAL FLUTTER IS NEW WHEN COMPARED TO PRIOR TRACING ABN ORMAL RHYTHM ECG PREVIOUS TRACING : 09/20/2016 22.18 DOCTOR: Camacho Gillette Interpretating Date/Time 09/21/2016 14:22:44
--- NOTE | 2016-09-21 15:34 | RADRPT ---
EXAM DATE/TIME: 09/21/2016 13:27 [facility] COMPARISON: No previous studies available for comparison. INDICATIONS : Atrial fibrillation. Abnormal EKG. DOSE: 25.5 mCi Tc99m Myoview at stress. 8.5 mCi Tc99m Myoview at rest. 0.4 mg Lexiscan STRESS SYMPTOMS: Heart racing. EJECTION FRACTION: > 70% MEDICAL HISTORY : Hypertension. Atrial fibrillation and atrial flutter. SURGICAL HISTORY : Hysterectomy. ENCOUNTER: Initial ACUITY: 1 day PAIN SCALE: 0/10 LOCATION: chest TECHNIQUE: The patient underwent pharmacologic stress with infusion of prescribed dose. Continuous ECG tracing was monitored during stress. Gated SPECT imaging was performed after stress and conventional SPECT i maging was performed at rest. The examination was performed on a SPECT/CT scanner, both attenuation and non-corrected datasets were reviewed. FINDINGS: DISTRIBUTION: The maximum perfused segment at stress is in the anterior wall. PERFUSION STUDY: The pattern of perfusion at stress is within normal limits. GATED STUDY: There is intact wall motion and thickening without hypokinetic or dyskinetic segments. CONCLUSION: Normal examination. RISK CATEGORY: Low (<1% Annual Mortality Rate) Michael Baires MD on September 21, 2016 at 15:31 Board Certified Radiologist. This report was verified electronically.
--- NOTE | 2016-09-21 16:02 | HHI.HP ---
HPI Service [facility] Hospitalists Primary Care Physician Joshua Quiles DO Admission Diagnosis Atrial flutter w/RVR; elevated troponin I; laryngitis Chief Complaint: sob Travel History International Travel<30 Days: No Contact w/Intl Traveler <30 Da: No Traveled to Known Affected Are: No History of Present Illness Pt is 89 yo with afib, htn who reports cough/sob and hoarseness over past week. poor po intake and presented to [facility] ED. transferred to [facility] to see cardiology for elevated troponin and afib/rvr. she converted to sinus. Review of Systems Other hoarse cough sob Past Family Social History Past Medical History afib htn anxiety hysterectomy Reported Medications Warfarin 5 Mg Tab 5 Mg PO DAILY Sotalol (Sotalol HCl) 80 Mg Tab 40 Mg PO BID Xalatan Opth Drops (Latanoprost) 0.005% Drops 1 Drop EACH EYE HS Estrace (Estradiol) 0.5 Mg Tab 0.5 Mg PO DAILY Amlodipine (Amlodipine Besylate) 5 Mg Tab 5 Mg PO DAILY Xanax (Alprazolam) 0.25 Mg Tab 0.25 Mg PO HS PRN Allergies: Coded Allergies: No Known Allergies (Unverified , 08/03/16) Family History nc Social History no etoh/tob Physical Exam Vital Signs heent neg heart reg lung wheezing. diminished air movement ext no edema Vital Signs Date Time Temp Pulse Resp B/P Pulse Ox O2 Delivery O2 Flow Rate FiO2 09/21/16 15:00 74 09/21/16 11:00 97.8 69 18 128/62 96 09/21/16 11:00 95 Room Air 09/21/16 10:00 78 16 118/55 98 Room Air 09/21/16 09:00 82 18 116/51 98 Nasal Cannula 1 09/21/16 08:25 65 16 103/47 99 Nasal Cannula 1 09/21/16 07:25 97.5 69 18 91/47 98 Nasal Cannula 1 09/21/16 07:20 69 18 98 Nasal Cannula 1 09/21/16 05:15 83 16 106/58 98 Nasal Cannula 2 09/21/16 03:21 84 16 98/52 98 Nasal Cannula 09/21/16 02:11 83 16 98/53 98 Nasal Cannula 2 09/21/16 00:45 88 16 116/79 99 Nasal Cannula 2 09/21/16 00:15 20 98 2 09/20/16 23:20 99 18 111/60 98 Nasal Cannula 2 09/20/16 23:00 156 20 111/60 98 Nasal Cannula 2 09/20/16 22:45 156 20 118/66 98 Nasal Cannula 2 09/20/16 22:32 156 20 144/69 99 Nasal Cannula 2 09/20/16 22:26 132 20 92/53 99 Nasal Cannula 2 09/20/16 22:15 98 Nasal Cannula 2 09/20/16 22:10 160 20 97/52 96 Nasal Cannula 2 09/20/16 22:06 154 22 141/81 89 09/20/16 22:04 156 22 89 Room Air 09/20/16 22:02 98.2 178 22 102/76 88 09/20/16 22:00 97.9 154 20 141/81 87 Laboratory Laboratory Tests Test 09/20/16 22:25 Prothrombin Time 13.9 Prothromb Time International 1.2 Ratio Activated Partial 36.0 Thromboplast Time Sodium Level 125 Potassium Level 3.4 Chloride Level 87 Carbon Dioxide Level 26.8 Anion Gap 11 Blood Urea Nitrogen 15 Creatinine 0.92 Estimat Glomerular Filtration 57 Rate Random Glucose 123 Lactic Acid Level 1.5 Calcium Level 8.4 Magnesium Level 1.8 Total Bilirubin 0.7 Aspartate Amino Transf 35 (AST/SGOT) Alanine Aminotransferase 24 (ALT/SGPT) Alkaline Phosphatase 123 Total Creatine Kinase 135 Creatine Kinase MB 1.1 Troponin I 0.29 B-Type Natriuretic Peptide 258 Total Protein 7.7 Albumin 2.9 White Blood Count 11.0 Red Blood Count 4.16 Hemoglobin 12.6 Hematocrit 37.7 Mean Corpuscular Volume 90.6 Mean Corpuscular Hemoglobin 30.3 Mean Corpuscular Hemoglobin 33.4 Concent Red Cell Distribution Width 13.0 Platelet Count 394 Mean Platelet Volume 7.4 Neutrophils (%) (Auto) 75.7 Lymphocytes (%) (Auto) 10.1 Monocytes (%) (Auto) 12.8 Eosinophils (%) (Auto) 0.3 Basophils (%) (Auto) 1.1 Neutrophils # (Auto) 8.4 Lymphocytes # (Auto) 1.1 Monocytes # (Auto) 1.4 Eosinophils # (Auto) 0.0 Basophils # (Auto) 0.1 CBC Comment AUTO DIFF Differential Total Cells 100 Counted Neutrophils % (Manual) 75 Band Neutrophils % 6 Lymphocytes % 6 Monocytes % 12 Basophils % 1 Neutrophils # (Manual) 8.9 Differential Comment FINAL DIFF MANUAL Platelet Estimate NORMAL Platelet Morphology Comment NORMAL Red Cell Morphology Comment NORMAL Date/Time Procedure Status Source Growth 09/20/16 22:50 Influenza Types A,B Antigen (FREDERICK) Received Nasal Washing Pending 09/20/16 22:35 Aerobic Blood Culture - Preliminary Resulted Blood Peripheral NO GROWTH IN 1 DAY 09/20/16 22:35 Anaerobic Blood Culture - Preliminary Resulted Blood Peripheral NO GROWTH IN 1 DAY Result Diagram: 09/20/16222409/20/162224 Assessment and Plan Problem List: (1) Atrial fibrillation and flutter Status: Acute Plan: Pt presents with afib/rvr bronchitis/laryngitis hyponatremia. hypovolemia/dehydration cardiology following lexiscan neg for ischemia dig added per cardiology cont anticoagulation. check inr NS given. recheck bmp in AM solumedrol/atrovent/budesonide/abx PT (2) Bronchitis Status: Acute (3) Laryngitis Status: Acute (4) HTN (hypertension) Status: Chronic Physician Certification 2 Midnight Certification Type: Admission for Inpatient Services Order for Inpatient Services 3The services are ordered in accordance with Medicare regulations or non- Medicare payer requirements, as applicable. In the case of services not specified as inpatient-only, they are appropriately provided as inpatient services in accordance with the 2-midnight benchmark. Estimated LOS (days): 3 3 days is the estimated time the patient will need to remain in the hospital, assuming treatment plan goals are met and no additional complications. Post-Hospital Plan: Home Parminder Moon MD Sep 21, 2016 16:02
[2016-09-21] MEDS: RESP: IPRATROPIUM 0.5 MG/2.5 ML NEB NEB SCH ×2 (16:28→20:16)
[2016-09-21] MEDS ORDERED: LEVOFLOXACIN 500 MG TAB PO ONE (16:30)
[2016-09-21] MEDS: WARFARIN SOD 5 MG TAB PO SCH (16:56)
[2016-09-21] MEDS ORDERED: methylPREDNISolone SOD SUCC 125 MG/2 ML VIAL IV PUSH ONE (17:00)
[2016-09-21] MEDS: RESP: BUDESONIDE 0.5 MG/2 ML NEB NEB SCH (20:16)
[2016-09-21] MEDS: methylPREDNISolone SOD SUCC 125 MG/2 ML VIAL IV PUSH SCH (23:37)
[2016-09-21] MEDS: LATANOPROST 0.005% OPHT SOLN 2.5 ML BTL EACH EYE SCH (23:37)
[2016-09-22] VITALS (30 sets, daily range): BP systolic 109–160; BP diastolic 57–74; PULSE 59–76; RESP 14–18; TEMP 96.9–97.8; O2SAT 96–100
[2016-09-22] MEDS: methylPREDNISolone SOD SUCC 125 MG/2 ML VIAL IV PUSH SCH ×4 (05:11→23:38)
[2016-09-22 05:50] LABS: INTERNATIONAL NORMALIZED RATIO 1.4 RATIO; PROTHROMBIN TIME - PATIENT 16.1 SEC (9.8-11.6)
[2016-09-22 06:02] LABS: BICARBONATE 25.7 MEQ/L (21.0-32.0); POTASSIUM 3.8 MEQ/L (3.5-5.1)
[2016-09-22] MEDS: SODIUM CHLOR 0.9% 1000 ML INJ 1,000 ML IV SCH ×2 (07:00→20:20)
[2016-09-22] MEDS: LEVOFLOXACIN 500 MG TAB PO SCH (07:51)
[2016-09-22] MEDS: SOTALOL HCL 80 MG TAB PO SCH ×2 (07:52→20:32)
[2016-09-22] MEDS: SODIUM CHLORIDE 0.9% FLUSH 10 ML FLUSH IV FLUSH SCH ×2 (07:52→20:32)
[2016-09-22] MEDS: ESTRADIOL 1 MG TAB PO SCH (07:52)
[2016-09-22] MEDS: DIGOXIN 0.125 MG TAB PO SCH (07:52)
[2016-09-22] MEDS: RESP: IPRATROPIUM 0.5 MG/2.5 ML NEB NEB SCH ×4 (08:00→19:35)
[2016-09-22] MEDS: RESP: BUDESONIDE 0.5 MG/2 ML NEB NEB SCH ×2 (08:00→19:35)
--- NOTE | 2016-09-22 08:21 | HHI.PR ---
Subjective Remarks voice seems stronger. still has cough. Objective Vitals heart reg lung improved air entry cough with inspiration. few areas of rhonci/wheeze abd s/nt ext no edema Vital Signs Date Time Temp Pulse Resp B/P Pulse Ox O2 Delivery O2 Flow Rate FiO2 09/22/16 08:04 71 09/22/16 08:03 97.5 74 18 135/71 97 09/22/16 08:00 96 09/22/16 07:00 74 09/22/16 07:00 97 Room Air 09/22/16 06:05 64 09/22/16 05:42 71 09/22/16 04:57 97.8 73 18 115/57 98 09/22/16 04:02 75 09/22/16 03:10 59 09/22/16 02:07 62 09/22/16 01:05 65 09/22/16 00:06 76 09/21/16 23:38 98.7 76 18 123/70 96 09/21/16 23:18 63 09/21/16 22:03 65 09/21/16 20:41 98.2 72 21 117/59 98 09/21/16 18:00 82 09/21/16 17:00 64 09/21/16 16:28 91 21 09/21/16 16:00 74 09/21/16 15:00 74 09/21/16 15:00 98.8 72 18 158/69 97 09/21/16 13:00 80 09/21/16 11:00 97.8 69 18 128/62 96 09/21/16 11:00 95 Room Air 09/21/16 10:00 78 16 118/55 98 Room Air 09/21/16 09:00 82 18 116/51 98 Nasal Cannula 1 09/21/16 08:25 65 16 103/47 99 Nasal Cannula 1 09/21/16 09/21/16 09/22/16 15:00 23:00 07:00 Intake Total 240 ml Output Total 400 ml 600 ml Balance -400 ml -360 ml Intake Oral 240 ml Output Urine Total 400 ml 600 ml Result Diagram: 09/20/16 2225 09/22/16 0357 A/P Problem List: (1) Atrial fibrillation and flutter Status: Acute Plan: Pt presents with afib/rvr bronchitis/laryngitis hyponatremia. hypovolemia/dehydration cardiology following lexiscan neg for ischemia dig added per cardiology cont anticoagulation. check inr NS . poor appetite. recheck NA solumedrol/atrovent/budesonide/abx PT and get oob today. IS. (2) Bronchitis Status: Acute (3) Laryngitis Status: Acute (4) HTN (hypertension) Status: Chronic Parminder Moon MD Sep 22, 2016 08:21
--- NOTE | 2016-09-22 08:51 | PD.CARD.PN ---
Subjective Subjective Remarks doing well no complaints Objective Medications Active Medications Amlodipine Besylate (Norvasc) 5 mg DAILY PO; Start 09/21/16 at 09:00; Stop 09/21 at 09:00; Status DC Digoxin (Lanoxin) 0.125 mg DAILY PO Last administered on 09/22/16 07:52; Admin Dose 0.125 MG; Start 09/21/16 at 09:00 Estradiol (Estradiol) 0.5 mg DAILY PO Last administered on 09/22/16 07:52; Admin Dose 0.5 MG; Start 09/21/16 at 09:00 Latanoprost (Xalatan 0.005% Opt Sol) 1 drop HS EACH EYE Last administered on 23:37; Admin Dose 1 DROP; Start 09/21/16 at 21:00 Levofloxacin (Levaquin) 500 mg DAILY PO Last administered on 09/22/16 07:51; Admin Dose 500 MG; Start 09/22/16 at 09:00 Levofloxacin 500 mg 500 mg ONCE ONCE PO Last administered on 09/21/16 16:56; Admin Dose 500 MG; Start 09/21/16 at 16:30; Stop 09/21/16 at 16:31; Status DC Methylprednisolone Sodium Succinate (SoluMEDROL INJ) 60 mg Q6H IV PUSH Last administered on 09/22/16 05:11; Admin Dose 60 MG; Start 09/21/16 at 23:00 Methylprednisolone Sodium Succinate (SoluMEDROL INJ) 125 mg ONCE ONCE IV PUSH Last administered on 09/21/16 16:57; Admin Dose 125 MG; Start 09/21/16 at 17:00 ; Stop 09/21/16 at 17:01; Status DC Miscellaneous (Pill Splitter) 1 ea UNSCH PRN OTHER; Start 09/21/16 at 09:15 Regadenoson (Lexiscan Inj) 0.4 mg STK-MED ONCE .ROUTE Last administered on 13:56; Admin Dose 0.4 MG; Start 09/21/16 at 13:56; Stop 09/21/16 at 13:57; Status DC Sodium Chloride (NS 1000 ml Inj) 1,000 ml @ 75 mls/hr [id number] IV; Start at 07:00 Sodium Chloride (NS 1000 ml Inj) 1,000 ml @ 100 mls/hr Q10H IV Last administered on 09/21/16 09:18; Admin Dose 100 MLS/HR; Start 09/21/16 at 09:00 ; Stop 09/21/16 at 09:01; Status DC Sodium Chloride (NS Flush) 2 ml BID IV FLUSH Last administered on 09/22/16 07: 52; Admin Dose 2 ML; Start 09/21/16 at 09:00 Sotalol HCl (Betapace) 40 mg BID PO Last administered on 09/22/16 07:52; Admin Dose 40 MG; Start 09/21/16 at 09:00 Warfarin Sodium 5 mg 5 mg DAILY@16 PO Last administered on 09/21/16 16:56; Admin Dose 5 MG; Start 09/21/16 at 16:00 Vital Signs / I&O Vital Signs Date Time Temp Pulse Resp B/P Pulse Ox O2 Delivery O2 Flow Rate FiO2 09/22/16 08:04 71 09/22/16 08:03 97.5 74 18 135/71 97 09/22/16 08:00 96 09/22/16 07:00 74 09/22/16 07:00 97 Room Air 09/22/16 06:05 64 09/22/16 05:42 71 09/22/16 04:57 97.8 73 18 115/57 98 09/22/16 04:02 75 09/22/16 03:10 59 09/22/16 02:07 62 09/22/16 01:05 65 09/22/16 00:06 76 09/21/16 23:38 98.7 76 18 123/70 96 09/21/16 23:18 63 09/21/16 22:03 65 09/21/16 20:41 98.2 72 21 117/59 98 09/21/16 18:00 82 09/21/16 17:00 64 09/21/16 16:28 91 21 09/21/16 16:00 74 09/21/16 15:00 74 09/21/16 15:00 98.8 72 18 158/69 97 09/21/16 13:00 80 09/21/16 11:00 97.8 69 18 128/62 96 09/21/16 11:00 95 Room Air 09/21/16 10:00 78 16 118/55 98 Room Air 09/21/16 09:00 82 18 116/51 98 Nasal Cannula 1 I/O 09/21/16 09/21/16 09/21/16 09/22/16 09/22/16 09/22/16 07:00 15:00 23:00 07:00 15:00 23:00 Intake Total 600 ml 240 ml Output Total 400 ml 600 ml Balance 600 ml -400 ml -360 ml Intake Oral 240 ml IV Total 600 ml Output Urine Total 400 ml 600 ml Physical Exam GENERAL: SKIN: Warm and dry. HEAD: Normocephalic. EYES: No scleral icterus. No injection or drainage. NECK: Supple, trachea midline. No JVD or lymphadenopathy. CARDIOVASCULAR: Regular rate and rhythm without murmurs, gallops, or rubs. RESPIRATORY: Breath sounds equal bilaterally. No accessory muscle use. GASTROINTESTINAL: Abdomen soft, non-tender, nondistended. MUSCULOSKELETAL: No cyanosis, or edema. BACK: Nontender without obvious deformity. No CVA tenderness. Laboratory Laboratory Tests Test 09/22/16 03:57 Prothrombin Time 16.1 SEC Prothromb Time International 1.4 RATIO Ratio Sodium Level 127 MEQ/L Potassium Level 3.8 MEQ/L Chloride Level 92 MEQ/L Carbon Dioxide Level 25.7 MEQ/L Anion Gap 9 MEQ/L Blood Urea Nitrogen 17 MG/DL Creatinine 0.70 MG/DL Estimat Glomerular Filtration 79 ML/MIN Rate Random Glucose 136 MG/DL Calcium Level 8.6 MG/DL Imaging Last Impressions Myocardial Perfusion Scan Nuc Med 09/21/16 1145 Signed Impressions: Service Date/Time: Wednesday, September 21, 2016 13:27 - CONCLUSION: Normal examination. RISK CATEGORY: Low (<1%% Annual Mortality Rate) Michael Baires MD Chest X-Ray 09/20/16 2442 Signed Impressions: Service Date/Time: Tuesday, September 20, 2016 22:17 - CONCLUSION: Minimal bibasilar patchy densities. Home Velasco MD Assessment and Plan Problem List: (1) Atrial flutter with rapid ventricular response Assessment and Plan afib RVR - paroxysmal on anticoagulation. continue sotalol. HR controlled intermediate troponin likely due to demand mediated event in setting of rapid ventricular rate. SPECT neg. SBP low. Na low. Cl low. likely dehydrated. gentle hydration. call with questions will sign off Addison Kamara MD Sep 22, 2016 08:51
[2016-09-22] MEDS: WARFARIN SOD 5 MG TAB PO SCH (17:16)
[2016-09-22] MEDS: LATANOPROST 0.005% OPHT SOLN 2.5 ML BTL EACH EYE SCH (20:35)
[2016-09-23] VITALS (26 sets, daily range): BP systolic 108–170; BP diastolic 61–79; PULSE 56–78; RESP 16–20; TEMP 97.4–98; O2SAT 96–99
[2016-09-23] MEDS: ALPRAZolam 0.25 MG TAB PO PRN ×2 (00:37→23:55)
[2016-09-23] MEDS: methylPREDNISolone SOD SUCC 125 MG/2 ML VIAL IV PUSH SCH ×4 (05:43→23:27)
[2016-09-23 06:36] LABS: BICARBONATE 19.4 MEQ/L (21.0-32.0)
[2016-09-23] MEDS ORDERED: CALCIUM CARBONATE 1.25 GM (CA 500 MG) TAB PO ONE (07:15)
[2016-09-23] MEDS: RESP: BUDESONIDE 0.5 MG/2 ML NEB NEB SCH ×2 (08:03→21:18)
[2016-09-23] MEDS: RESP: IPRATROPIUM 0.5 MG/2.5 ML NEB NEB SCH ×4 (08:03→21:18)
[2016-09-23 08:15] LABS: POTASSIUM 2.8 MEQ/L (3.5-5.1)
[2016-09-23] MEDS: ESTRADIOL 1 MG TAB PO SCH (08:31)
[2016-09-23] MEDS: DIGOXIN 0.125 MG TAB PO SCH (08:31)
[2016-09-23] MEDS: POTASSIUM CHLORIDE 20 MEQ CONTROLLED RELEASE TAB PO SCH ×3 (08:32→11:01)
[2016-09-23] MEDS: LEVOFLOXACIN 500 MG TAB PO SCH (08:32)
[2016-09-23] MEDS: SODIUM CHLORIDE 0.9% FLUSH 10 ML FLUSH IV FLUSH SCH ×2 (08:33→23:25)
[2016-09-23] MEDS: SOTALOL HCL 80 MG TAB PO SCH ×2 (08:34→23:26)
--- NOTE | 2016-09-23 08:48 | HHI.PR ---
Subjective Remarks feeling stronger overall. Objective Vitals nad heart reg lung improving air entry abd s/nt ext no edema Vital Signs Date Time Temp Pulse Resp B/P Pulse Ox O2 Delivery O2 Flow Rate FiO2 09/23/16 08:04 97 09/23/16 07:00 98.0 63 18 136/62 97 09/23/16 07:00 62 09/23/16 07:00 95 Room Air 09/23/16 05:00 68 09/23/16 04:00 97.4 67 18 155/79 99 09/23/16 04:00 60 09/23/16 03:00 60 09/23/16 02:00 62 09/23/16 01:00 78 09/23/16 00:00 66 09/22/16 23:41 97.6 65 16 160/74 100 09/22/16 23:00 64 09/22/16 22:00 70 09/22/16 20:00 66 09/22/16 19:40 97 Room Air 09/22/16 19:40 66 14 151/67 96 09/22/16 19:00 70 09/22/16 18:00 62 09/22/16 17:22 62 09/22/16 16:12 65 09/22/16 15:19 98 21 09/22/16 15:00 97.7 63 17 112/57 98 09/22/16 15:00 61 09/22/16 14:00 63 09/22/16 13:28 70 09/22/16 12:11 65 09/22/16 11:44 61 09/22/16 11:00 96.9 61 16 109/57 100 09/22/16 10:03 71 09/22/16 09:08 73 09/22/16 09/22/16 09/23/16 15:00 23:00 07:00 Intake Total 1080 ml 1102 ml Output Total 1600 ml Balance 1080 ml -498 ml Intake Oral 480 ml 240 ml IV Total 600 ml 862 ml Output Urine Total 1600 ml # Voids 3 # Bowel Movements 0 0 Result Diagram: 09/20/16 2225 09/23/16 0419 A/P Problem List: (1) Atrial fibrillation and flutter Status: Acute Plan: Pt presents with afib/rvr bronchitis/laryngitis hyponatremia. hypovolemia/dehydration cardiology following lexiscan neg for ischemia dig added per cardiology cont anticoagulation. check inr stop NS replace kcl solumedrol/atrovent/budesonide/abx PT and get oob today. IS. Pt needs to get oob and get more agressive with IS. (2) Bronchitis Status: Acute (3) Laryngitis Status: Acute (4) HTN (hypertension) Status: Chronic Parminder Moon MD Sep 23, 2016 08:48
--- NOTE | 2016-09-23 12:59 | HHI.FF ---
Face to Face Verification Diagnosis: (1) Atrial fibrillation and flutter (2) Bronchitis (3) Laryngitis Physical Therapy Order: Evaluate and Treat, Improve ambulation Home Health Nursing Order: Medical education Signs/symptoms of disease process Nursing assessment with vital signs I have seen patient Viviane Lindsay on 09/23/16. My clinical findings support the need for the requested home health care services because: Deconditioned w/ increased weakness I certify that my clinical findings support that this patient is homebound because: Impaired cognitive ability/safety Parminder Moon MD Sep 23, 2016 12:59
[2016-09-23] MEDS ORDERED: ONDANSETRON HCL 4 MG/2 ML VIAL IV PUSH ONE (16:00)
[2016-09-23] MEDS ORDERED: SIMETHICONE 125 MG CHEWABLE TAB PO ONE (16:00)
[2016-09-23] MEDS ORDERED: cloNIDine HCL 0.1 MG TAB PO PRN (16:00)
[2016-09-23] MEDS ORDERED: ONDANSETRON HCL 4 MG/2 ML VIAL IV PUSH PRN (16:00)
[2016-09-23] MEDS: WARFARIN SOD 5 MG TAB PO SCH (16:33)
[2016-09-23 17:37] LABS: MAGNESIUM 2.2 MG/DL (1.5-2.5); POTASSIUM 5.4 MEQ/L (3.5-5.1)
[2016-09-23] MEDS: SODIUM CHLOR 0.9% 1000 ML INJ 1,000 ML IV SCH (18:44)
[2016-09-23] MEDS: LATANOPROST 0.005% OPHT SOLN 2.5 ML BTL EACH EYE SCH (23:24)
[2016-09-23] MEDS: SIMETHICONE 125 MG CHEWABLE TAB PO SCH (23:26)
[2016-09-24 04:55] VITALS: BP 135/64; PULSE 56; RESP 16; TEMP 97.7; O2SAT 97
[2016-09-24] MEDS: SODIUM CHLOR 0.9% 1000 ML INJ 1,000 ML IV SCH (05:41)
[2016-09-24] MEDS: methylPREDNISolone SOD SUCC 125 MG/2 ML VIAL IV PUSH SCH ×2 (05:42→11:30)
[2016-09-24] MEDS: SIMETHICONE 125 MG CHEWABLE TAB PO SCH ×2 (05:46→14:00)
[2016-09-24 07:03] LABS: INTERNATIONAL NORMALIZED RATIO 3.7 RATIO; PROTHROMBIN TIME - PATIENT 43.9 SEC (9.8-11.6)
[2016-09-24 07:12] LABS: BICARBONATE 24.1 MEQ/L (21.0-32.0); POTASSIUM 5.4 MEQ/L (3.5-5.1)
[2016-09-24 08:00] VITALS: BP 158/69; PULSE 58; RESP 18; TEMP 97; O2SAT 97
[2016-09-24] MEDS: RESP: BUDESONIDE 0.5 MG/2 ML NEB NEB SCH (08:00)
[2016-09-24] MEDS: RESP: IPRATROPIUM 0.5 MG/2.5 ML NEB NEB SCH ×3 (08:00→15:47)
[2016-09-24] MEDS: LEVOFLOXACIN 500 MG TAB PO SCH (08:32)
[2016-09-24] MEDS: ESTRADIOL 1 MG TAB PO SCH (08:32)
[2016-09-24] MEDS: SODIUM CHLORIDE 0.9% FLUSH 10 ML FLUSH IV FLUSH SCH (08:33)
[2016-09-24] MEDS: DIGOXIN 0.125 MG TAB PO SCH (08:33)
[2016-09-24] MEDS: SOTALOL HCL 80 MG TAB PO SCH (08:33)
[2016-09-24 10:02] VITALS: O2SAT 96
--- NOTE | 2016-09-24 10:50 | HHI.PR ---
Subjective Remarks pt insisting on d/c home today. feels better Objective Vitals heart reg lung improved air entry abd s/nt ext no edema Vital Signs Date Time Temp Pulse Resp B/P Pulse Ox O2 Delivery O2 Flow Rate FiO2 09/24/16 10:02 96 21 09/24/16 04:55 97.7 56 16 135/64 97 09/23/16 23:10 97.8 58 16 108/61 97 09/23/16 23:00 64 09/23/16 20:30 66 09/23/16 20:00 56 09/23/16 20:00 Room Air 09/23/16 19:50 97.4 59 16 155/64 97 09/23/16 18:58 Room Air 09/23/16 17:26 70 09/23/16 16:43 97.5 70 20 170/74 96 09/23/16 16:22 71 09/23/16 15:00 66 09/23/16 14:00 77 09/23/16 13:17 68 09/23/16 12:10 60 09/23/16 11:49 66 09/23/16 11:00 98.0 67 18 144/73 98 09/23/16 09/23/16 09/24/16 14:59 22:59 06:59 Intake Total 1590 ml 470 ml Output Total 500 ml 450 ml Balance 1090 ml 20 ml Intake Oral 680 ml 0 ml IV Total 910 ml 470 ml Output Urine Total 500 ml 450 ml # Voids 3 # Bowel Movements 0 0 Result Diagram: 09/20/16 2225 09/24/16 0624 A/P Problem List: (1) Atrial fibrillation and flutter Status: Acute Plan: Pt presents with afib/rvr bronchitis/laryngitis hyponatremia. hypovolemia/dehydration supratherapeutic inr due to abx interaction. no bleeding cardiology following lexiscan neg for ischemia dig added per cardiology stop NS replaced kcl solumedrol/atrovent/budesonide/abx...wean steroid. pt instructed on her elevated inr and bleeding risk. offered another day here in hospital to monitor. she declined and will be going home today with hhc/pt and hold coumadin until inr recheck Tuesday....resume if inr less than 3 on Tuesday. addendum: pt changed her mind. going for snf. monitor inr at snf. (2) Bronchitis Status: Acute (3) Laryngitis Status: Acute (4) HTN (hypertension) Status: Chronic Parminder Moon MD Sep 24, 2016 10:49
--- NOTE | 2016-09-24 10:52 | HHI.DCPOC ---
Discharge Care Plan Diagnosis: (1) Atrial fibrillation and flutter (2) Laryngitis (3) Bronchitis (4) HTN (hypertension) (5) Elevated INR Goals to Promote Your Health * To prevent worsening of your condition and complications * To maintain your health at the optimal level Directions to Meet Your Goals Take your medications as prescribed Follow your dietary instruction Follow activity as directed Keep your appointments as scheduled Take your immunizations and boosters as scheduled If your symptoms worsen call your PCP, if no PCP go to Urgent Care Center or Emergency Room Smoking is Dangerous to Your Health. Avoid second hand smoke Call the 24-hour hour crisis hotline for domestic abuse at Parminder Moon MD Sep 24, 2016 10:52
[2016-09-24] MEDS ORDERED: WARF-23 PO ×2 (10:54→15:30)
[2016-09-24] MEDS ORDERED: LEVA500T20 PO (10:54)
[2016-09-24] MEDS ORDERED: DIGO0.12 PO (10:54)
[2016-09-24 12:00] VITALS: BP 150/65; PULSE 62; RESP 18; TEMP 97.4; O2SAT 97
[2016-09-24] MEDS ORDERED: ALPR.25 PO (15:28)
[2016-09-24] MEDS ORDERED: PRED10 PO (15:33)
[2016-09-24 15:48] VITALS: O2SAT 97
[2016-09-24 16:00] VITALS: BP 149/71; PULSE 70; RESP 18; TEMP 98; O2SAT 97
== END 2016-09-24 18:01 | DRG 309 ==
LOC: PHED 21:44 → PHEDA 09-21 00:14 → PHEDH 09-21 04:25 → HCIS 09-21 11:12 → N04B 09-23 18:34
PROVIDERS: ADMIT Hospitalist; ATTEND Hospitalist
DX: I48.92 Unspecified atrial flutter (principal); E87.1 Hypo-osmolality and hyponatremia; E86.0 Dehydration; I10 Essential (primary) hypertension; I48.0 Paroxysmal atrial fibrillation; F41.9 Anxiety disorder, unspecified; Z79.01 Long term (current) use of anticoagulants; J04.0 Acute laryngitis; R79.1 Abnormal coagulation profile; J40 Bronchitis, not specified as acute or chronic
CPT/HCPCS: 71010; 78452; 80048; 80053; 82550; 82552; 83605; 83735; 83880; 84100; 84155; 84484; 85007; 85027; 85610; 85730; 87040; 87804; 93005; 93017; 93306; 94150; 94640; 94664; 96365; 96375; A9502; J0696; J2405; J2785; J2930; J7030; J7040; J7626; J7644